=== PATIENT | male | born 1945 | race Caucasian/White ===

== ENCOUNTER → 2018-04-20 | Outpatient (CLI) | payer MEDICARE ==
[~2018-04-20] MED LIST: LISI-362 PO; MELO-205 PO
[2018-04-20 10:53] LABS: PLATELET COUNT, AUTOMATED 232 K/uL (150-450)
[2018-04-20 11:10] LABS: LDL CHOLESTEROL 95 mg/dl
== END ==
LOC: LAB 10:26
PROVIDERS: ATTEND Internal Medicine
DX: R01.1 Cardiac murmur, unspecified (principal)
CPT/HCPCS: 81001; 84443; 85025; G0103; 36415; 82040; 82247; 82310; 82374; 82435; 82465; 82565; 82947; 83718; 84075; 84132; 84153; 84155; 84295; 84450; 84460; 84478; 84520

== ENCOUNTER → 2018-04-26 | Outpatient (CLI) | payer MEDICARE | LOC: US 01:43 | PROVIDERS: ATTEND Internal Medicine | DX: I51.7 Cardiomegaly (principal) | CPT/HCPCS: 93306 ==